=== PATIENT | male | born 1965 | race Caucasian/White ===

== ENCOUNTER 2019-01-04 10:45 | Emergency (ER) | payer BC ==
[2019-01-04 11:13] VITALS: BP 141/87
--- NOTE | 2019-01-04 12:02 | ED ---
Abdominal Pain/Male - HPI Summary HPI Summary: 53 yr old male with almost one week of bilateral lower quadrant abdominal pain, rated as 1/10 in intensity. He states he has had normal bowel movements every day. He reports that he has had feeling of some abdominal distention. He had colonscopy within the past 3 yrs and he states he has had a polyp removed in the past. He denies NV. He states he has a family history of diverticulosis, diverticulitis. He denies urinary symptoms. Denies fever, chills. - History of Current Complaint Chief Complaint: UCAbdominalPain Stated Complaint: ABD DISCOMFORT Time Seen by Provider: 01/04/19 11:43 Pain Intensity: 2 - Allergies/Home Medications Allergies/Adverse Reactions: Allergies Allergy/AdvReac Type Severity Reaction Status Date / Time No Known Allergies Allergy Verified 01/04/19 11:10 PMH/Surg Hx/FS Hx/Imm Hx - Surgical History Surgery Procedure, Year, and Place: left knee 2018 Infectious Disease History: No Infectious Disease History: Denies: Traveled Outside the [place] in Last 30 Days - Family History Known Family History: Positive: Other - diverticulosis, diverticulitis - Social History Occupation: Employed Full-time Alcohol Use: None Substance Use Type: Reports: None Smoking Status (MU): Never Smoked Tobacco Review of Systems Constitutional: Negative Positive: Abdominal Pain All Other Systems Reviewed And Are Negative: Yes Physical Exam Triage Information Reviewed: Yes Vital Signs On Initial Exam: Initial Vitals Temp Pulse Resp BP Pulse Ox 97.4 F 55 14 141/87 100 01/04/19 11:08 01/04/19 11:08 01/04/19 11:08 01/04/19 11:08 01/04/19 11:08 Vital Signs Reviewed: Yes Appearance: Positive: Well-Appearing, No Pain Distress Skin: Positive: Warm, Skin Color Reflects Adequate Perfusion Head/Face: Positive: Normal Head/Face Inspection Eyes: Positive: EOMI ENT: Positive: Normal ENT inspection Neck: Positive: Nontender Respiratory/Lung Sounds: Positive: Clear to Auscultation, Breath Sounds Present Cardiovascular: Positive: RRR. Negative: Murmur Abdomen Description: Positive: Nontender. Negative: CVA Tenderness (R), CVA Tenderness (L), Guarding Musculoskeletal: Positive: Strength/ROM Intact Neurological: Positive: Sensory/Motor Intact, Alert, Oriented to Person Place, Time, CN Intact II-III Psychiatric: Positive: Normal Diagnostics - Vital Signs Vital Signs Temp Pulse Resp BP Pulse Ox 01/04/19 11:08 97.4 F 55 14 141/87 100 - Laboratory Lab Statement: Any lab studies that have been ordered have been reviewed, and results considered in the medical decision making process. Abdominal Pain Fem Course/Dx - Course Course Of Treatment: 53 yr old male with a week of bilateral lower abdominal pain, vague in nature. Recommend he go to the ER for further work up of his week long symptoms. - Diagnoses Provider Diagnoses: Bilateral lower abdominal pain, Hypertension Discharge - Sign-Out/Discharge Documenting (check all that apply): Patient Departure All imaging exams completed and their final reports reviewed: No Studies - Discharge Plan Condition: Good Disposition: HOME-RECOMMEND TO ED Patient Education Materials: Acute Abdominal Pain (ED), Hypertension (ED) Referrals: Duc Sparks MD [Primary Care Provider] - Additional Instructions: You should go to the ER after leaving here for further work up of the cause of your abdominal pain. - Billing Disposition and Condition Condition: GOOD Disposition: Home-Recommend to ED
== END 2019-01-04 12:00 | disposition home health service (06) ==
LOC: UCCORT 10:45
DX: R10.31 Right lower quadrant pain (principal); R10.32 Left lower quadrant pain; I10 Essential (primary) hypertension
CPT/HCPCS: 99202; G0463